=== PATIENT | male | born 1965 | race Caucasian/White ===

== ENCOUNTER → 2018-03-07 | Day surgery (SDC) | payer OTHER ==
[~2018-03-07] VITALS: Ht 175.3 cm; Wt 77.1 kg
[~2018-03-07] MED LIST: LISINOPRIL5 M1 PO
--- NOTE | 2018-03-07 17:36 | Operative Report ---
Operative/Inv Procedure Report Surgery Date: 03/07/18 Name of Procedure: Right epididymal cyst excision Pre-Operative Diagnosis: Date-sized epididymal cyst Post-Operative Diagnosis: Same Estimated Blood Loss: scant Surgeon/Down Filler: Cora Rene MD Anesthesia: local monitored anesthesi Specimens: Epididymal cyst sac Complications: None Condition: Stable Operative Indication: Right epididymal cyst that was causing scrotal discomfort Operative/Procedure Note Note: 53-year-old male with a history of a right scrotal mass. He was found to have an epididymal cyst and he wished to have it removed. It was causing him right scrotal discomfort. He was given the risks benefits and alternatives of the surgery in the office and in the holding area. All questions were answered. He wished to proceed and consent was signed. Patient was taken to the operating room placed on the operating table in the supine position. Timeout was performed. IV antibiotics were infused. His genitalia region was clipped and he was prepped and draped in the standard sterile fashion. 1% lidocaine was infiltrated into the right inguinal cord with 1% lidocaine and quarter percent Marcaine. He of the mass was firmly grasped and the skin was made taut. #15 blade was then used to carefully dissect down to the cyst. Allis clamps were used to grasp the scrotal skin as well as the doctor's fascia beneath it. The cyst was delivered out into the surgical site. The cyst was dissected free from the attached epididymis using the Bovie cautery as well as the Metzenbaum scissors. It was entirely removed with the sac intact and was passed off the field to send to pathology. Point bleeders were coagulated with the Bovie cautery. There is no active bleeding. The testicle was examined no abnormalities were appreciated. He was placed back into the scrotal sac. The dartos fascia layer was closed with running 3-0 Vicryl suture. The skin was closed with interrupted 3-0 chromic suture. He was cleaned of the Betadine prep. Bacitracin was applied Telfa was placed over the site. Fluffs were placed over this and a jockstrap was placed. Sponge and needle count were correct at the end of the case. Findings: Epididymal cyst approximally date sized Discharge Disposition: Same Day Admissions
== END ==
LOC: STS 01:45
DX: N50.3 Cyst of epididymis (principal); I10 Essential (primary) hypertension; N43.3 Hydrocele, unspecified; Z87.891 Personal history of nicotine dependence
CPT/HCPCS: J0690; J2001; J2250; J3490